=== PATIENT | male | born 1970 | race Caucasian/White ===

== ENCOUNTER 2019-10-20 15:52 | Outpatient (CLI) | payer OTHER | END 2019-10-20 15:53 | disposition home or self-care (01) | LOC: DTY/OP 15:52 | PROVIDERS: ATTEND Surgery | DX: E66.01 Morbid (severe) obesity due to excess calories (principal) | CPT/HCPCS: 97802 ==

== ENCOUNTER 2019-12-03 14:56 | Outpatient (CLI) | payer OTHER | END 2019-12-03 14:57 | disposition home or self-care (01) | LOC: DTY/OP 14:56 | PROVIDERS: ATTEND Surgery | DX: E66.01 Morbid (severe) obesity due to excess calories (principal) | CPT/HCPCS: 97802 ==

== ENCOUNTER 2019-12-23 12:47 | Outpatient (CLI) | payer OTHER | END 2019-12-23 12:48 | disposition home or self-care (01) | LOC: DTY/OP 12:47 | PROVIDERS: ATTEND Surgery | DX: E66.01 Morbid (severe) obesity due to excess calories (principal) | CPT/HCPCS: 97802 ==

== ENCOUNTER 2020-01-20 15:30 | Inpatient (IN) | payer OTHER ==
[2020-01-25] MEDS ORDERED: PROPOFOL 200 MG/20 ML VIAL ONE (09:20)
[2020-01-25] MEDS ORDERED: EPHEDRINE 25 MG/5 ML SYRINGE ONE (09:20)
[2020-01-25] MEDS ORDERED: Rocuronium Bromide 10 MG/ML (10ML VIAL) ONE (09:20)
[2020-01-25] MEDS ORDERED: Ketorolac Tromethamine 30 MG/ML VIAL ONE (09:20)
[2020-01-25] MEDS ORDERED: Ondansetron PF 4 MG/2 ML Vial ONE (09:20)
[2020-01-25] MEDS ORDERED: Dexamethasone 20 MG/5 ML VIAL ONE (09:20)
[2020-01-25] MEDS ORDERED: PHENYLEPHRINE-NS 100 MCG/ML 10 ML SYRINGE ONE (09:20)
[2020-01-25] MEDS ORDERED: Glycopyrrolate 0.2 MG/ML 5 ML SYRINGE ONE (09:20)
[2020-01-25] MEDS ORDERED: Lidocaine 1% PF 5 ML VIAL ONE (09:20)
[2020-01-25] MEDS ORDERED: Heparin 5,000 UNITS/ML VIAL ONE (09:56)
[2020-01-25 10:18] LABS: #Basophils 0.1 thou/uL (0.0-0.2); #Eosinphils 0.9 thou/uL (0.0-0.7); #Lymphocytes 2.2 thou/uL (1.20-3.40); #Monocytes 0.5 thou/uL (0.11-0.59); #Neutrophils 5.1 thou/uL (1.40-6.50); %Basophils 0.6 % (0.0-1.0); %Eosinophils 10.7 % (0.0-10.0); %Lymphocytes 25.3 % (21.0-51.0); %Monocytes 5.7 % (0.0-10.0); %Neutrophils 57.7 % (42.0-75.0); Hemoglobin 14.6 g/dL (14.0-18.0); Mean Corpuscular HGB CONC 34.3 g/dL (32.0-36.0); Mean Corpuscular Hemoglobin 29.4 pg (27.0-31.0); Mean Corpuscular Volume 85.9 fL (78.0-98.0); Mean Platelet Volume 9.9 fL (7.4-10.4); Platelet Count 189 thou/uL (130-400); RBC Distribution Width 12.6 % (11.5-14.5); Red Blood Cell (RBC) Count 4.94 mill/uL (4.70-6.10); White Blood Cell (WBC) Count 8.8 thou/uL (4.8-10.8)
--- NOTE | 2020-01-25 10:24 | RAD ---
EXAM: CHEST ONE VIEW HISTORY: Preoperative evaluation COMPARISON: None FINDINGS: The cardiac silhouette and pulmonary vasculature are within normal limits. Mild prominence of the vas cular structures at each lung base which is overall nonspecific finding. Lungs are otherwise clear. The osseous structures are intact. IMPRESSION: No acute cardiopulmonary process.
[2020-01-25] MEDS ORDERED: Fentanyl 100 MCG/2 ML VIAL ONE ×3 (10:36→13:20)
[2020-01-25 10:38] LABS: Anion Gap 13 mmol/L (10-20); Calcium 9.5 mg/dL (7.8-10.44); Carbon Dioxide 26 mmol/L (22-29); Chloride 107 mmol/L (98-107); Glucose 95 mg/dL (70-105); Potassium 4.3 mmol/L (3.5-5.1); Sodium 142 mmol/L (136-145)
[2020-01-25 10:39] LABS: Hemoglobin A1c 5.6 % (4.0-6.0)
[2020-01-25 10:40] LABS: BUN (Urea Nitrogen) 28 mg/dL (8.9-20.6); Calc. Creatinine Clearance 0 mL/min (70-130); Estimated GFR-MDRD 77
[2020-01-25] MEDS ORDERED: Bupivacaine/Epinephrine 0.25% 30 ML VIAL ONE (10:48)
[2020-01-25 10:54] LABS: ALT (SGPT) 26 U/L (8-55); AST (SGOT) 21 U/L (5-34); Albumin 4.2 g/dL (3.5-5.0); Alkaline Phosphatase 76 U/L (40-110); Bilirubin, Total 0.4 mg/dL (0.2-1.2); Globulin 3.5 g/dL (2.4-3.5); Protein, Total 7.7 g/dL (6.0-8.3)
[2020-01-25] MEDS ORDERED: Hydrocodone-Acetamin 15 ML UDCUP PO PRN (12:40)
[2020-01-25] MEDS ORDERED: Ondansetron PF 4 MG/2 ML Vial IVP PRN ×2 (12:40→13:11)
[2020-01-25] MEDS ORDERED: diphenhydrAMINE 50 MG/ML VIAL IVP PRN ×2 (12:40→13:11)
[2020-01-25] MEDS ORDERED: Dextrose 5% in Water 1,000 ML IV PRN (12:40)
[2020-01-25] MEDS ORDERED: Promethazine HCl 25 MG/ML VIAL IM PRN ×3 (12:40→13:11)
[2020-01-25] MEDS ORDERED: Dextrose 50% Abboject 50 ML SYRINGE SLOW IVP PRN (12:40)
[2020-01-25] MEDS ORDERED: hydrALAZINE 20 MG/ML VIAL SLOW IVP PRN (12:40)
[2020-01-25] MEDS ORDERED: HumaLOG 300 UNITS/3 ML VIAL SC PRN (12:40)
[2020-01-25] MEDS ORDERED: Promethazine HCl 25 MG/ML VIAL SLOW IVP PRN (12:47)
[2020-01-25] MEDS ORDERED: Ondansetron HCl/PF 4 MG/2 ML Vial IVP PRN (12:47)
[2020-01-25] MEDS ORDERED: fentaNYL Citrate/PF 2,000 MCG in Sodium Chloride 0.9% 60 ML IV PRN (13:11)
[2020-01-25] MEDS ORDERED: diphenhydrAMINE 25 MG CAP PO PRN (13:11)
[2020-01-25] MEDS ORDERED: Zolpidem Tartrate 5 MG TAB PO PRN (13:11)
[2020-01-25] MEDS ORDERED: Naloxone HCl 0.4 mg/ml Vial IV PRN (13:11)
[2020-01-25] MEDS ORDERED: diphenhydrAMINE 50 MG/ML VIAL IM PRN (13:11)
[2020-01-25] MEDS ORDERED: Communication Order-Pharmacy FS PRN (13:15)
--- NOTE | 2020-01-25 13:38 | OP ---
DATE OF PROCEDURE: 01/25/2020 PREOPERATIVE DIAGNOSES: 1. Morbid obesity with body mass index of 35. 2. Diabetes mellitus, type 2. POSTOPERATIVE DIAGNOSES: 1. Morbid obesity with body mass index of 35. 2. Diabetes mellitus, type 2. PROCEDURE PERFORMED: Laparoscopic sleeve gastrectomy with Ethicon staple line reinforcements and 38-Marshallese bougie. ANESTHESIA: General. ESTIMATED BLOOD LOSS: Minimal. COMPLICATIONS: None. SPECIMENS: Stomach. FINDINGS: Normal postoperative EGD. DESCRIPTION OF PROCEDURE: The patient was taken to the operating room and laid supine on the operating room table. After general anesthetic was obtained, arms and legs were double strapped to bariatric table. OG tube was used to decompress the stomach and then removed. The abdomen was prepped and draped in a sterile fashion. Left subcostal 5-mm Optiview trocar placed in the usual fashion and high-flow pneumoperitoneum was obtained. Left and right abdominal 12-mm ports as well as right subcostal 5-mm port were placed under direct visualization. A 5-mm incision was made at the xiphoid and Grace was used to raise the liver off the GE junction. Short gastrics were taken down from midbody of the stomach to the left lex of diaphragm. Left lex, posterior fundus, angle of His were completely dissected. No hiatal hernia present. Short gastrics were taken down to a distance of 6 cm proximal to the pylorus. OG was removed and a 38-Marshallese bougie was brought in and its tip left in the antrum of the stomach. Multiple loads of an [place] stapling device were used to form the sleeve, all with Ethicon staple line reinforcements. The 1st was a green load, fired up at the incisura 6 cm proximal to the pylorus. Care was taken to avoid being too close to incisura. Multiple loads then fired up along the bougie. Stomach was completely transected at the angle of His. Stomach was removed from left abdominal incision. This fascial defect was closed using GraNee needle and 0 Vicryl tie. There were a few bleeders on the staple line and were clipped using laparoscopic clip. The bougie was removed and the EGD scope was passed through the esophagus and stomach to the level of the duodenum without obstruction. There was no stricture at the incisura. EGD scope was pulled and removed. All port sites were infiltrated using local anesthetic. All ports were removed under camera visualization. Pneumoperitoneum was let down. A 4-0 Monocryl and Dermabond were used to close all the skin incisions. The patient was sent to Recovery in stable condition. All instrument counts, needle counts, and lap counts were correct. Job ID: [id number]
[2020-01-25] MEDS: Gabapentin 300 MG CAP PO SCH ×2 (16:33→20:36)
[2020-01-25] MEDS: Sodium Chloride 0.9% 1,000 ML IV SCH ×2 (16:35→21:34)
[2020-01-25 18:15] VITALS: BMI 34.5
[2020-01-25] MEDS ORDERED: Zolpidem Tartrate 5 MG TAB PO SCH (21:00)
[2020-01-25] MEDS ORDERED: Enoxaparin Sodium 40 MG/0.4 ML SYRINGE SC SCH (21:00)
[2020-01-26] MEDS: Sodium Chloride 0.9% 1,000 ML IV SCH (05:49)
[2020-01-26 06:05] LABS: #Monocytes 0.4 thou/uL (0.11-0.59); #Neutrophils 10.3 thou/uL (1.40-6.50); %Basophils 0.1 % (0.0-1.0); %Eosinophils 0.1 % (0.0-10.0); %Lymphocytes 8.8 % (21.0-51.0); %Monocytes 3.7 % (0.0-10.0); %Neutrophils 87.3 % (42.0-75.0); Hemoglobin 12.6 g/dL (14.0-18.0); Mean Corpuscular HGB CONC 33.5 g/dL (32.0-36.0); Mean Corpuscular Hemoglobin 29.3 pg (27.0-31.0); Mean Corpuscular Volume 87.5 fL (78.0-98.0); Mean Platelet Volume 9.7 fL (7.4-10.4); Platelet Count 192 thou/uL (130-400); RBC Distribution Width 12.6 % (11.5-14.5); Red Blood Cell (RBC) Count 4.29 mill/uL (4.70-6.10); White Blood Cell (WBC) Count 11.8 thou/uL (4.8-10.8)
[2020-01-26 06:26] LABS: Anion Gap 15 mmol/L (10-20); BUN (Urea Nitrogen) 21 mg/dL (8.9-20.6); Calc. Creatinine Clearance 127 mL/min (70-130); Calcium 8.9 mg/dL (7.8-10.44); Carbon Dioxide 23 mmol/L (22-29); Chloride 105 mmol/L (98-107); Estimated GFR-MDRD 74; Glucose 120 mg/dL (70-105); Potassium 4.4 mmol/L (3.5-5.1); Sodium 139 mmol/L (136-145)
[2020-01-26] MEDS: Gabapentin 300 MG CAP PO SCH (08:54)
[2020-01-26] MEDS ORDERED: FLU VACC QS2020-21(6MOS UP)/PF 60 MCG/0.5 ML SYRINGE IM ONE (09:00)
[2020-01-26] MEDS ORDERED: Pantoprazole 40 MG VIAL IVP SCH (09:00)
[2020-01-26] MEDS ORDERED: Escitalopram Oxalate 20 mg Tablet PO SCH (09:00)
--- NOTE | 2020-01-26 11:40 | DIS ---
DATE OF ADMISSION: 01/25/2020 DATE OF DISCHARGE: 01/26/2020 ADMIT DIAGNOSES: Morbid obesity, diabetes mellitus type 2. DISCHARGE DIAGNOSES: Morbid obesity, diabetes mellitus type 2. PROCEDURES: Laparoscopic sleeve by Dr. Altamirano without complication. CONDITION ON DISCHARGE: Improved. STAFF: Dr. Altamirano. HOSPITAL COURSE: On postop day #1, the patient is ambulatory. He is tolerating a liquid diet without difficulty. He was discharged to home. He will follow up with me in 2 weeks. Job ID: [id number]
[2020-01-26 12:29] VITALS: BP 118/77; TEMP 97.9
== END 2020-01-26 13:00 | disposition home or self-care (01) | DRG 621 ==
LOC: SURG A 01-25 09:30
PROVIDERS: ADMIT Surgery; ATTEND Surgery
PROC: 0DB64Z3 Excision of Stomach, Percutaneous Endoscopic Approach, Vertical (ICD-10-PCS; principal; 2020-01-25)
DX: E66.01 Morbid (severe) obesity due to excess calories (principal); E11.9 Type 2 diabetes mellitus without complications; E78.1 Pure hyperglyceridemia; F41.9 Anxiety disorder, unspecified; G89.29 Other chronic pain; Z79.899 Other long term (current) drug therapy; Z68.34 Body mass index [BMI] 34.0-34.9, adult
CPT/HCPCS: 36415; 36416; 71045; 80048; 83036; 85025; 88307; 88312; 90471; 90662; C9113; G0008; J0690; J1100; J1644; J1650; J1885; J2405; J2704; J3010